=== PATIENT | female | born 1990 | race Caucasian/White ===

== ENCOUNTER 2022-12-29 15:25 | Emergency (ER) | payer SELFPAY ==
[~2022-12-29] VITALS: Ht 154.9 cm; Wt 63.0 kg
[2022-12-29 15:28] VITALS: BP 137/66
[2022-12-29] MEDS ORDERED: ACETAMINOPHEN 325MG TABLET PO ONE (16:30)
[2022-12-29] MEDS ORDERED: ACETAMINOPHEN 325MG TABLET PO NR (16:30)
[2022-12-29] MEDS ORDERED: IBUP-1523 MT (19:22)
[2022-12-29] MEDS ORDERED: ACET-2708 MT (19:23)
== END 2022-12-29 23:55 | disposition home or self-care (01) ==
LOC: ER 15:25
DX: M79.672 Pain in left foot (principal)
CPT/HCPCS: 29515; 73630; 99283

== ENCOUNTER 2023-02-10 07:50 | Emergency (ER) | payer OTHER ==
[~2023-02-10] VITALS: Ht 157.5 cm; Wt 64.0 kg
[~2023-02-10 07:50] MED LIST: ACET-2708 MT; IBUP-1523 MT
[2023-02-10 07:59] VITALS: BP 112/61
== END 2023-02-10 10:24 | disposition home or self-care (01) ==
LOC: ER 07:50
DX: S92.912A Unspecified fracture of left toe(s), initial encounter for closed fracture (principal); X58.XXXA Exposure to other specified factors, initial encounter; Y93.89 Activity, other specified; Y92.89 Other specified places as the place of occurrence of the external cause; Y99.8 Other external cause status
CPT/HCPCS: 73660; 99283